=== PATIENT | male | born 1955 | race Caucasian/White ===

== ENCOUNTER 2019-01-23 19:13 | Emergency (ER) | payer SELFPAY ==
--- NOTE | 2019-01-23 20:10 | EDM.PDOC ---
ED HPI GENERAL MEDICAL PROBLEM - General Chief Complaint: Back Pain or Injury Stated Complaint: BACK PAIN Time Seen by Provider: 01/23/19 20:05 - History of Present Illness INITIAL COMMENTS - FREE TEXT/NARRATIVE: HISTORY AND PHYSICAL: History of present illness: Patient is a 63-year-old white male presents 48 hours status post fall from a ladder this was approximately 15 feet height he presents today with concern of low back pain with radiation to his lower extremities denies numbness weakness incontinence or retention our bladder denies any other trauma or concern Review of systems: As per history of present illness and below otherwise all systems reviewed and negative. Past medical history: As per history of present illness and as reviewed below otherwise noncontributory. Surgical history: As per history of present illness and as reviewed below otherwise noncontributory. Social history: No reported history of drug or alcohol abuse. Family history: As per history of present illness and as reviewed below otherwise noncontributory. Physical exam: HEENT: Atraumatic, normocephalic, pupils reactive, negative for conjunctival pallor or scleral icterus, mucous membranes moist, throat clear, neck supple, nontender, trachea midline. Lungs: Clear to auscultation, breath sounds equal bilaterally, chest nontender. Heart: S1S2, regular, negative for clicks, rubs, or JVD. Abdomen: Soft, nondistended, nontender. Negative for masses or hepatosplenomegaly. Negative for costovertebral tenderness. Pelvis: Stable nontender. Genitourinary: Deferred. Rectal: Deferred. Extremities: Atraumatic, negative for cords or calf pain. Neurovascular unremarkable. Neuro: Awake, alert, oriented. Cranial nerves II through XII unremarkable. Cerebellum unremarkable. Motor and sensory unremarkable throughout. Exam nonfocal. Back: Patient has tenderness paravertebral region of the lumbar spine is no vertebral body or point tenderness patient is able stand on his toes back on his heels motor and sensory are normal thoracic spine is nontender to palpation Diagnostics: CT lumbar spine x-ray pelvis Therapeutics: None Impression: #1 observation 48 hours status post fall #2 lumbar strain/contusion with radiculopathy Definitive disposition and diagnosis as appropriate pending reevaluation and review of above. Lower Back Pain Score (Numeric/FACES): 10 - Related Data Allergies Allergy/AdvReac Type Severity Reaction Status Date / Time No Known Allergies Allergy Verified 01/23/19 19:47 Home Meds: Home Meds Lisinopril 10 mg PO DAILY 01/23/19 [History] Past Medical History HEENT History: Reports: None Cardiovascular History: Reports: Hypertension Respiratory History: Reports: None Gastrointestinal History: Reports: None Genitourinary History: Reports: None Musculoskeletal History: Reports: Fracture Neurological History: Reports: None Psychiatric History: Reports: Anxiety, Panic Attack Endocrine/Metabolic History: Reports: None Hematologic History: Reports: None Immunologic History: Reports: None Oncologic (Cancer) History: Reports: None Dermatologic History: Reports: None - Infectious Disease History Infectious Disease History: Reports: None - Past Surgical History Head Surgeries/Procedures: Reports: None Other Musculoskeletal Surgeries/Procedures:: ankle Social & Family History - Family History Family Medical History: Noncontributory - Tobacco Use Smoking Status *Q: Never Smoker Second Hand Smoke Exposure: No - Caffeine Use Caffeine Use: Reports: Coffee - Recreational Drug Use Recreational Drug Use: No ED ROS GENERAL - Review of Systems Review Of Systems: ROS reveals no pertinent complaints other than HPI. ED EXAM, GENERAL - Physical Exam Exam: See Below (See dictation) Course - Vital Signs Last Recorded V/S: Last Vital Signs Temp 36.6 C 01/23/19 19:42 Pulse 72 01/23/19 22:01 Resp 16 01/23/19 22:01 BP 185/118 H 01/23/19 22:01 Pulse Ox 97 01/23/19 22:01 - Orders/Labs/Meds Orders: Active Orders 24 hr Category Date Time Status Pelvis 1V or 2V [CR] Stat Exams 01/23/19 20:08 Taken Meds: Medications Discontinued Medications Generic Name Dose Route Start Last Admin Trade Name Mikey PRN Reason Stop Dose Admin Ketorolac Tromethamine 60 mg 01/23/19 21:48 01/23/19 22:00 Toradol IM 01/23/19 21:49 60 mg ONETIME ONE Administration Departure - Departure Time of Disposition: 22:10 Disposition: Home, Self-Care 01 Condition: Good Clinical Impression: Compression fracture of first lumbar vertebra - Discharge Information Referrals: PCP,None [Primary Care Provider] - Forms: ED Department Discharge Additional Instructions: The following information is given to patients seen in the emergency department who are being discharged to home. This information is to outline your options for follow-up care. We provide all patients seen in our emergency department with a follow-up referral. The need for follow-up, as well as the timing and circumstances, are variable depending upon the specifics of your emergency department visit. If you don't have a primary care physician on staff, we will provide you with a referral. We always advise you to contact your personal physician following an emergency department visit to inform them of the circumstance of the visit and for follow-up with them and/or the need for any referrals to a consulting specialist. The emergency department will also refer you to a specialist when appropriate. This referral assures that you have the opportunity for followup care with a specialist. All of these measure are taken in an effort to provide you with optimal care, which includes your followup. Under all circumstances we always encourage you to contact your private physician who remains a resource for coordinating your care. When calling for followup care, please make the office aware that this follow-up is from your recent emergency room visit. If for any reason you are refused follow-up, please contact the [facility] emergency department at and asked to speak to the emergency department charge nurse. Hydrocodone as prescribed follow-up primary medical doctor return as needed as discussed - My Orders Last 24 Hours: My Active Orders 01/23/19 20:08 Pelvis 1V or 2V [CR] Stat - Assessment/Plan Last 24 Hours: My Active Orders 01/23/19 20:08 Pelvis 1V or 2V [CR] Stat
--- NOTE | 2019-01-23 20:54 | CT ---
INDICATION: Fall. Pain TECHNIQUE: CT lumbar spine without contrast. COMPARISON: None available FINDINGS: The lumbar spine alignment is preserved. There is a moderate anterior compression deformity of the L1 vertebral body without an obvious fracture lucency. Otherwise, no acute lumbar spine fracture is seen. There is a chronic periosteal deformity in the posterior aspect of the right ilium with a corticated calcific density in the adjacent soft tissues, sequela of old trauma. Mild degenerative changes are noted, including a disc bulge at L4-5 and a small disk protrusion at L5-S1. No paravertebral soft tissue mass is seen. There are partially imaged right renal cysts, some containing calcified septations. Left renal parapelvic cysts are noted. Atherosclerotic changes are seen. IMPRESSION: An L1 compression deformity appears chronic. If clinically indicated, MRI evaluation may be of value to evaluate for a recent injury. Degenerative changes. Partially imaged complex right renal cysts. Recommend followup. Dictated by Eb Neal MD @ 01/23/2019 8:53:20 PM Please note that all CT scans at this facility use dose modulation, iterative reconstruction, and/or weight-based dosing when appropriate to reduce radiation dose to as low as reasonably achievable. Dictated by: Eb Neal MD @ 01/23/2019 20:53:29 (Electronically Signed)
[2019-01-23] MEDS ORDERED: Ketorolac 60 MG/2 ML SDV IM ONE (21:48)
[2019-01-23 22:02] VITALS: BP 185/118
--- NOTE | 2019-01-26 10:56 | CR ---
EXAM DATE: 01/23/19 PATIENT'S AGE: 63 Patient: INNA FAULKNER Facility: [facility], [place], [place], operated by [facility] Site Site : [id number] Study: XRay-Pelvis [id number]/17/2019 8:46:59 PM Ordering Physician: Sage Parr MD Final Report: Indication: Fall Technique: Frontal view pelvis Comparison: None Findings: Bones: Alignment is normal. No fractures. There is a 4 mm sclerotic bone lesion in the left femoral neck. Joint spaces: Unremarkable. Soft tissues: Unremarkable. Impression: No acute fracture subluxation. Nonspecific, subcentimeter sclerotic bone lesion in the left femoral neck. Recommend correlation with any prior imaging to evaluate for interval change. Dictated by Stefanie Durand MD @ Jan 23 2019 9:05PM Signed by: Stefanie Durand MD @01/23/2019 9:09:22 PM (Electronic Signature) MTDD
== END 2019-01-23 22:44 | disposition home or self-care (01) ==
LOC: MW.ED 19:13
DX: S32.019A Unspecified fracture of first lumbar vertebra, initial encounter for closed fracture (principal); I10 Essential (primary) hypertension; Z79.899 Other long term (current) drug therapy; W11.XXXA Fall on and from ladder, initial encounter
CPT/HCPCS: 72131; 72170; 96372; 99284; J1885; 99283

== ENCOUNTER 2019-02-28 19:32 | Emergency (ER) | payer SELFPAY ==
[2019-02-28] MEDS ORDERED: LORazepam 0.5 MG Tab PO ONE (20:09)
--- NOTE | 2019-02-28 20:09 | EDM.PDOC ---
ED HPI GENERAL MEDICAL PROBLEM - General Chief Complaint: General Stated Complaint: PANIC ATTACK Time Seen by Provider: 02/28/19 19:43 Source of Information: Reports: Patient History Limitations: Reports: No Limitations - History of Present Illness INITIAL COMMENTS - FREE TEXT/NARRATIVE: HISTORY AND PHYSICAL: History of present illness: Patient is a 63-year-old male presenting today for panic attacks. Patient reports that they began one week ago and he has had them multiple times a day. He states that when he has panic attacks his thoughts race, he feels chest pressure, and is afraid to go to sleep. He is not currently experiencing chest pressure. He does state that he has a history of panic attacks that were treated with PRN Ativan which he ran out of last week as he just moved here to be with his son after his mothers passing. Patient states he had called and made an appointment with [facility] and has an appointment this coming Saturday. Patient denies fever, chills, chest pain, shortness of breath, or cough. Denies headache, neck stiff ness, change in vision, syncope, or near syncope. Denies nausea, vomiting, abdominal pain, diarrhea, constipation, or dysuria. Has not noted any blood in urine or stool. Patient has been eating and drinking appropriately. Review of systems: As per history of present illness and below otherwise all systems reviewed and negative. Past medical history: As per history of present illness and as reviewed below otherwise noncontributory. Surgical history: As per history of present illness and as reviewed below otherwise noncontributory. Social history: See social history for further information Family history: As per history of present illness and as reviewed below otherwise noncontributory. Physical exam: General: Patient is alert, oriented, and in no acute distress. Patient sitting comfortably on exam table but does appear moderately anxious. HEENT: Atraumatic, normocephalic, pupils equal and reactive bilaterally, negative for conjunctival pallor or scleral icterus, mucous membranes moist, TMs normal bilaterally, throat clear, neck supple, nontender, trachea midline. No drooling or trismus noted. No meningeal signs. No hot potato voice noted. Lungs: Clear to auscultation, breath sounds equal bilaterally, chest nontender. Heart: S1S2, regular rate and rhythm without overt murmur Abdomen: Soft, nondistended, nontender. Negative for masses or hepatosplenomegaly. Negative for costovertebral tenderness. Pelvis: Stable nontender. Genitourinary: Deferred. Rectal: Deferred. Skin: Intact, warm, dry. No lesions or rashes noted. Extremities: Atraumatic, negative for cords or calf pain. Neurovascular unremarkable. Neuro: Awake, alert, oriented. Cranial nerves II through XII unremarkable. Cerebellum unremarkable. Motor and sensory unremarkable throughout. Exam nonfocal. Notes: Discussed the importance of following up with PCP as scheduled. Voices understanding and is agreeable to plan of care. Denies any further questions or concerns at this time. Diagnostics: EKG (patient declines all other diagnostics due to concern about cost) Therapeutics: Ativan PO Prescription: None Impression: Anxiety History of Anxiety Plan: 1. Follow up with your primary care provider as you have scheduled. Return to the ED as needed and as discussed. Definitive disposition and diagnosis as appropriate pending reevaluation and review of above. denies pain Pain Score (Numeric/FACES): 0 - Related Data Allergies Allergy/AdvReac Type Severity Reaction Status Date / Time No Known Allergies Allergy Verified 02/28/19 19:42 Home Meds: Home Meds Lisinopril 10 mg PO DAILY 01/23/19 [History] LORazepam 1 mg PO DAILY 02/28/19 [History] Past Medical History HEENT History: Reports: None Cardiovascular History: Reports: Hypertension Respiratory History: Reports: None Gastrointestinal History: Reports: None Genitourinary History: Reports: None Musculoskeletal History: Reports: Fracture Neurological History: Reports: None Psychiatric History: Reports: Anxiety, Panic Attack Endocrine/Metabolic History: Reports: None Hematologic History: Reports: None Immunologic History: Reports: None Oncologic (Cancer) History: Reports: None Dermatologic History: Reports: None - Infectious Disease History Infectious Disease History: Reports: None - Past Surgical History Head Surgeries/Procedures: Reports: None Other Musculoskeletal Surgeries/Procedures:: ankle Social & Family History - Family History Family Medical History: Noncontributory - Tobacco Use Smoking Status *Q: Never Smoker - Caffeine Use Caffeine Use: Reports: Coffee - Recreational Drug Use Recreational Drug Use: No ED ROS GENERAL - Review of Systems Review Of Systems: ROS reveals no pertinent complaints other than HPI. ED EXAM, GENERAL - Physical Exam Exam: See Below (See dictation) Course - Vital Signs Last Recorded V/S: Last Vital Signs Temp 36.7 C 06/22/19 19:42 Pulse 66 02/28/19 19:42 Resp 18 02/28/19 19:42 BP 149/80 H 02/28/19 19:42 Pulse Ox 96 02/28/19 19:42 - Orders/Labs/Meds Orders: Active Orders 24 hr Category Date Time Status EKG Documentation Completion [RC] STAT Care 02/28/19 20:09 Active Meds: Medications Discontinued Medications Generic Name Dose Route Start Last Admin Trade Name Mikey PRN Reason Stop Dose Admin Lorazepam 0.5 mg 02/28/19 20:09 Ativan PO 02/28/19 20:10 ONETIME ONE Departure - Departure Time of Disposition: 20:38 Disposition: Home, Self-Care 01 Clinical Impression: Anxiety, History of panic attacks - Discharge Information Referrals: PCP,None [Primary Care Provider] - Forms: ED Department Discharge Additional Instructions: The following information is given to patients seen in the emergency department who are being discharged to home. This information is to outline your options for follow-up care. We provide all patients seen in our emergency department with a follow-up referral. The need for follow-up, as well as the timing and circumstances, are variable depending upon the specifics of your emergency department visit. If you don't have a primary care physician on staff, we will provide you with a referral. We always advise you to contact your personal physician following an emergency department visit to inform them of the circumstance of the visit and for follow-up with them and/or the need for any referrals to a consulting specialist. The emergency department will also refer you to a specialist when appropriate. This referral assures that you have the opportunity for follow-up care with a specialist. All of these measure are taken in an effort to provide you with optimal care, which includes your follow-up. Under all circumstances we always encourage you to contact your private physician who remains a resource for coordinating your care. When calling for follow-up care, please make the office aware that this follow-up is from your recent emergency room visit. If for any reason you are refused follow-up, please contact the [facility] Emergency Department at and asked to speak to the emergency department charge nurse. [facility] [address] [place] [id number] [facility] [address] [place] [id number] 1. Follow up with your primary care provider as you have scheduled. Return to the ED as needed and as discussed. - My Orders Last 24 Hours: My Active Orders 02/28/19 20:09 EKG Documentation Completion [RC] STAT - Assessment/Plan Last 24 Hours: My Active Orders 02/28/19 20:09 EKG Documentation Completion [RC] STAT
[2019-02-28 22:16] VITALS: BP 133/95
== END 2019-02-28 20:46 | disposition home or self-care (01) ==
LOC: MW.ED 19:32
DX: F41.9 Anxiety disorder, unspecified (principal); I10 Essential (primary) hypertension; Z79.899 Other long term (current) drug therapy
CPT/HCPCS: 93005; 99283; A9270

== ENCOUNTER 2019-04-11 22:04 | Emergency (ER) | payer SELFPAY ==
--- NOTE | 2019-04-11 22:17 | EDM.PDOC ---
ED HPI GENERAL MEDICAL PROBLEM - General Chief Complaint: General Stated Complaint: PANIC ATTACKS Time Seen by Provider: 04/11/19 22:11 - History of Present Illness INITIAL COMMENTS - FREE TEXT/NARRATIVE: HISTORY AND PHYSICAL: History of present illness: Patient is a 63-year-old white male history of anxiety and panic attacks presents with a concern of panic attack he has an appointment approximately one week and his private medical doctor this has improved since arrival here. He denies suicidal or homicidal ideation or any other concern Review of systems: As per history of present illness and below otherwise all systems reviewed and negative. Past medical history: As per history of present illness and as reviewed below otherwise noncontributory. Surgical history: As per history of present illness and as reviewed below otherwise noncontributory. Social history: No reported history of drug or alcohol abuse. Family history: As per history of present illness and as reviewed below otherwise noncontributory. Physical exam: HEENT: Atraumatic, normocephalic, pupils reactive, negative for conjunctival pallor or scleral icterus, mucous membranes moist, throat clear, neck supple, nontender, trachea midline. Lungs: Clear to auscultation, breath sounds equal bilaterally, chest nontender. Heart: S1S2, regular, negative for clicks, rubs, or JVD. Abdomen: Soft, nondistended, nontender. Negative for masses or hepatosplenomegaly. Negative for costovertebral tenderness. Pelvis: Stable nontender. Genitourinary: Deferred. Rectal: Deferred. Extremities: Atraumatic, negative for cords or calf pain. Neurovascular unremarkable. Neuro: Awake, alert, oriented. Cranial nerves II through XII unremarkable. Cerebellum unremarkable. Motor and sensory unremarkable throughout. Exam nonfocal. Diagnostics: None Therapeutics: None Impression: #1 history of anxiety with panic attacks #2 medical screening Definitive disposition and diagnosis as appropriate pending reevaluation and review of above. - Related Data Allergies Allergy/AdvReac Type Severity Reaction Status Date / Time No Known Allergies Allergy Verified 02/28/19 19:42 Home Meds: Home Meds Lisinopril 10 mg PO DAILY 01/23/19 [History] LORazepam 1 mg PO DAILY 02/28/19 [History] Past Medical History HEENT History: Reports: None Cardiovascular History: Reports: Hypertension Respiratory History: Reports: None Gastrointestinal History: Reports: None Genitourinary History: Reports: None Musculoskeletal History: Reports: Fracture Neurological History: Reports: None Psychiatric History: Reports: Anxiety, Panic Attack Endocrine/Metabolic History: Reports: None Hematologic History: Reports: None Immunologic History: Reports: None Oncologic (Cancer) History: Reports: None Dermatologic History: Reports: None - Infectious Disease History Infectious Disease History: Reports: None - Past Surgical History Head Surgeries/Procedures: Reports: None Other Musculoskeletal Surgeries/Procedures:: ankle Social & Family History - Family History Family Medical History: Noncontributory - Caffeine Use Caffeine Use: Reports: Coffee ED ROS GENERAL - Review of Systems Review Of Systems: ROS reveals no pertinent complaints other than HPI. ED EXAM, GENERAL - Physical Exam Exam: See Below (See dictation) Departure - Departure Time of Disposition: 22:16 Disposition: Home, Self-Care 01 Condition: Good Clinical Impression: History of anxiety disorder, Encounter for medical screening examination - Discharge Information Referrals: PCP,None [Primary Care Provider] - Additional Instructions: The following information is given to patients seen in the emergency department who are being discharged to home. This information is to outline your options for follow-up care. We provide all patients seen in our emergency department with a follow-up referral. The need for follow-up, as well as the timing and circumstances, are variable depending upon the specifics of your emergency department visit. If you don't have a primary care physician on staff, we will provide you with a referral. We always advise you to contact your personal physician following an emergency department visit to inform them of the circumstance of the visit and for follow-up with them and/or the need for any referrals to a consulting specialist. The emergency department will also refer you to a specialist when appropriate. This referral assures that you have the opportunity for followup care with a specialist. All of these measure are taken in an effort to provide you with optimal care, which includes your followup. Under all circumstances we always encourage you to contact your private physician who remains a resource for coordinating your care. When calling for followup care, please make the office aware that this follow-up is from your recent emergency room visit. If for any reason you are refused follow-up, please contact the [facility] emergency department at and asked to speak to the emergency department charge nurse. Keep scheduled appointment as discussed return as needed as discussed
[2019-04-11 22:49] VITALS: BP 120/65; PULSE 64
== END 2019-04-11 22:26 | disposition home or self-care (01) ==
LOC: MW.ED 22:04
DX: Z13.89 Encounter for screening for other disorder (principal); F41.0 Panic disorder [episodic paroxysmal anxiety]; I10 Essential (primary) hypertension; Z79.899 Other long term (current) drug therapy
CPT/HCPCS: 99282; 99283

== ENCOUNTER 2019-04-14 10:10 | Emergency (ER) | payer SELFPAY ==
--- NOTE | 2019-04-14 10:52 | EDM.PDOC ---
ED HPI GENERAL MEDICAL PROBLEM - General Chief Complaint: General Stated Complaint: PANIC ATTACKS Time Seen by Provider: 04/14/19 10:32 - History of Present Illness INITIAL COMMENTS - FREE TEXT/NARRATIVE: HISTORY AND PHYSICAL: History of present illness: Presents reporting anxiety and panic attacks. The patient states he has a long history of anxiety and panic but over the last 2 weeks it is worsened as his mom . He states that if he is not constantly Busy by working or some other distraction he panics. His panic attacks are characterized by shortness of breath, jitters, overactivity, trouble sleeping, racing thoughts, crying, and constant worry. He states that he was previously on Ativan 0.5 mg 3 times a day which did control his symptoms however he ran out. He had been "hoarding them" and taking them only when absolutely necessary but now he ran out completely. He has an appointment in primary care on at [facility] at 4:30. He intends on keeping that appointment but needs something to get him through in the interim. Review of systems: As per history of present illness and below otherwise all systems reviewed and negative. Past medical history: As per history of present illness and as reviewed below otherwise noncontributory. Surgical history: As per history of present illness and as reviewed below otherwise noncontributory. Social history: No reported history of drug or alcohol abuse. Family history: As per history of present illness and as reviewed below otherwise noncontributory. Physical exam: HEENT: Atraumatic, normocephalic, pupils reactive, negative for conjunctival pallor or scleral icterus, mucous membranes moist, throat clear, neck supple, nontender, trachea midline. Lungs: Clear to auscultation, breath sounds equal bilaterally, chest nontender. Heart: S1S2, regular, negative for clicks, rubs, or JVD. Abdomen: Soft, nondistended, nontender. Negative for masses or hepatosplenomegaly. Negative for costovertebral tenderness. Pelvis: Stable nontender. Genitourinary: Deferred. Rectal: Deferred. Extremities: Atraumatic, negative for cords or calf pain. Neurovascular unremarkable. Neuro: Awake, alert, oriented. Cranial nerves II through XII unremarkable. Cerebellum unremarkable. Motor and sensory unremarkable throughout. Exam nonfocal. Diagnostics: [] Therapeutics: [] Impression: [] Plan: [] Definitive disposition and diagnosis as appropriate pending reevaluation and review of above. - Related Data Allergies Allergy/AdvReac Type Severity Reaction Status Date / Time No Known Allergies Allergy Verified 04/14/19 10:26 Home Meds: Home Meds Lisinopril 10 mg PO DAILY 01/23/19 [History] LORazepam 1 mg PO DAILY 02/28/19 [History] LORazepam 0.5 mg PO Q8H #10 tab 04/14/19 [Rx] Past Medical History HEENT History: Reports: None Other HEENT History: wears glasses Cardiovascular History: Reports: Hypertension Respiratory History: Reports: None Gastrointestinal History: Reports: None Genitourinary History: Reports: None Musculoskeletal History: Reports: Fracture Neurological History: Reports: None Psychiatric History: Reports: Anxiety, Panic Attack Endocrine/Metabolic History: Reports: None Hematologic History: Reports: None Immunologic History: Reports: None Oncologic (Cancer) History: Reports: None Dermatologic History: Reports: None - Infectious Disease History Infectious Disease History: Reports: None - Past Surgical History Head Surgeries/Procedures: Reports: None Other Musculoskeletal Surgeries/Procedures:: ankle Social & Family History - Family History Family Medical History: Noncontributory - Tobacco Use Smoking Status *Q: Never Smoker - Caffeine Use Caffeine Use: Reports: None - Recreational Drug Use Recreational Drug Use: No ED ROS GENERAL - Review of Systems Review Of Systems: See Below Psychiatric: Reports: Other (Denies self-harm or homicidal ideations). Denies: Homicidal Ideation, Suicidal Ideation ED EXAM, GENERAL - Physical Exam Exam: See Below Exam Limited By: No Limitations General Appearance: Alert, Moderate Distress (Jittery and having difficulty talking due to anxiety) Ears: Normal External Exam Nose: Normal Inspection Throat/Mouth: Normal Inspection Head: Atraumatic, Normocephalic Neck: Normal Inspection Respiratory/Chest: No Respiratory Distress Cardiovascular: Normal Peripheral Pulses Psychiatric: Anxious Skin Exam: Warm, Dry, Normal Color Course - Vital Signs Last Recorded V/S: Last Vital Signs Temp 36.9 C 04/14/19 10:26 Pulse 60 04/14/19 10:26 Resp 18 04/14/19 10:26 BP 166/102 H 04/14/19 10:26 Pulse Ox 93 L 04/14/19 10:26 Departure - Departure Time of Disposition: 10:59 Disposition: Home, Self-Care 01 Condition: Good Clinical Impression: Panic - Discharge Information *PRESCRIPTION DRUG MONITORING PROGRAM REVIEWED*: Yes *COPY OF PRESCRIPTION DRUG MONITORING REPORT IN PATIENT FELICIANO: Yes Referrals: PCP,None [Primary Care Provider] - Additional Instructions: The following information is given to patients seen in the emergency department who are being discharged to home. This information is to outline your options for follow-up care. We provide all patients seen in our emergency department with a follow-up referral. The need for follow-up, as well as the timing and circumstances, are variable depending upon the specifics of your emergency department visit. If you don't have a primary care physician on staff, we will provide you with a referral. We always advise you to contact your personal physician following an emergency department visit to inform them of the circumstance of the visit and for follow-up with them and/or the need for any referrals to a consulting specialist. The emergency department will also refer you to a specialist when appropriate. This referral assures that you have the opportunity for follow-up care with a specialist. All of these measure are taken in an effort to provide you with optimal care, which includes your follow-up. Under all circumstances we always encourage you to contact your private physician who remains a resource for coordinating your care. When calling for follow-up care, please make the office aware that this follow-up is from your recent emergency room visit. If for any reason you are refused follow-up, please contact the [facility] Emergency Department at and asked to speak to the emergency department charge nurse. 1. Take your Ativan 3 times a day until your appointment on . No driving or operating machinery 2. Follow-up in primary care as previously scheduled on at [facility].
[2019-04-14 11:24] VITALS: BP 139/85; PULSE 51
== END 2019-04-14 11:24 | disposition home or self-care (01) ==
LOC: MW.ED 10:10
DX: F41.0 Panic disorder [episodic paroxysmal anxiety] (principal); I10 Essential (primary) hypertension; Z79.01 Long term (current) use of anticoagulants; Z79.899 Other long term (current) drug therapy
CPT/HCPCS: 99282

== ENCOUNTER 2019-05-15 22:18 | Emergency (ER) | payer SELFPAY ==
[2019-05-15] MEDS ORDERED: Sodium Chloride 0.9% 2.5 ML Syringe FLUSH PRN (22:21)
[2019-05-15] MEDS ORDERED: Sodium Chloride 0.9% 10 ML Syringe FLUSH PRN (22:21)
[2019-05-15 22:41] VITALS: BP 174/106; PULSE 89
== END 2019-05-15 22:25 | disposition left against medical advice (07) ==
LOC: MW.ED 22:18
DX: Z53.21 Procedure and treatment not carried out due to patient leaving prior to being seen by health care provider (principal)
CPT/HCPCS: 99284

== ENCOUNTER 2020-05-02 08:48 | Emergency (ER) | payer SELFPAY ==
--- NOTE | 2020-05-02 09:06 | EDM.PDOC ---
ED HPI GENERAL MEDICAL PROBLEM - General Chief Complaint: Lower Extremity Injury/Pain Stated Complaint: INJURED BOTH FEET Time Seen by Provider: 05/02/20 08:53 - History of Present Illness INITIAL COMMENTS - FREE TEXT/NARRATIVE: History of present illness: Patient presents with bilateral ankle pain and lumbar spine pain after a fall from a roof over 2 days ago. Patient states he was working on a roof and then slid down the roof and then fell off landing on his feet he did not hit his head he did not get knocked out he has been having ankle pain in both feet and he has been using Ran wraps to try to help with pain initially his right was worse than his left but now the left is swollen and he is unable to bear weight on it. He has been having some difficulty with lumbar pain. He has not taken anything for the pain. Review of systems: As per history of present illness and below otherwise all systems reviewed and negative. Past medical history: As per history of present illness and as reviewed below otherwise no ncontributory. Surgical history: As per history of present illness and as reviewed below otherwise noncontributory. Social history: No reported history of drug or alcohol abuse. Family history: As per history of present illness and as reviewed below otherwise noncontributory. Physical exam: HEENT: Atraumatic, normocephalic, pupils reactive, negative for conjunctival pallor or scleral icterus, mucous membranes moist, throat clear, neck supple, nontender. There is no midline cervical spine tenderness full active range of motion is present without pain, trachea midline. Lungs: Clear to auscultation, breath sounds equal bilaterally, chest nontender. Heart: S1S2, regular, negative for clicks, rubs, or JVD. Abdomen: Soft, nondistended, nontender. Negative for masses or hepatosplenomegaly. Negative for costovertebral tenderness. Pelvis: Stable nontender. Genitourinary: Deferred. Rectal: Deferred. Extremities: Atraumatic, negative for cords or calf pain. Neurovascular unremarkable. Both ankles are swollen with good distal pulse motor and sensation. There is pain over both navicular bones and lateral malleoli. The left is more swollen than the right. Neuro: Awake, alert, oriented. Cranial nerves II through XII unremarkable. Cerebellum unremarkable. Motor and sensory unremarkable throughout. Exam nonfocal. No saddle anesthesia great toe strength 5 out of 5 bilaterally Back: There is midline tenderness at L3-4-5 with paraspinal tenderness in the musculature at the same level. No step-offs or crepitance is noted Diagnostics: [] Therapeutics: [] Impression: [] Plan: Patient will receive some Motrin in the ED bilateral ankles and lumbar spine films will be obtained [] Definitive disposition and diagnosis as appropriate pending reevaluation and review of above. left ankle Pain Score (Numeric/FACES): 10 - Related Data Allergies Allergy/AdvReac Type Severity Reaction Status Date / Time No Known Allergies Allergy Verified 05/02/20 09:03 Home Meds: Home Meds Lisinopril 10 mg PO DAILY 01/23/19 [History] LORazepam 1 mg PO DAILY 02/28/19 [History] Naproxen [Naprosyn] 500 mg PO Q12HR #20 tab 05/02/20 [Rx] Past Medical History HEENT History: Reports: None Other HEENT History: wears glasses Cardiovascular History: Reports: Hypertension Respiratory History: Reports: None Gastrointestinal History: Reports: None Genitourinary History: Reports: None Musculoskeletal History: Reports: Fracture Neurological History: Reports: None Psychiatric History: Reports: Anxiety, Panic Attack Endocrine/Metabolic History: Reports: None Hematologic History: Reports: None Immunologic History: Reports: None Oncologic (Cancer) History: Reports: None Dermatologic History: Reports: None - Infectious Disease History Infectious Disease History: Reports: None - Past Surgical History Head Surgeries/Procedures: Reports: None Other Musculoskeletal Surgeries/Procedures:: ankle Social & Family History - Family History Family Medical History: Noncontributory - Caffeine Use Caffeine Use: Reports: None Review of Systems - Review of Systems Review Of Systems: See Below ED EXAM, GENERAL - Physical Exam Exam: See Below Course - Vital Signs Text/Narrative:: 3 view lumbar spine read interpreted by me there is an L1 compression fracture with moderate compression abnormalities read and interpreted by me 6 views of bilateral ankles read and interpreted by me there are chronic changes including orthopedic hardware but there are no acute fractures read and interpreted by me I attempted to inform the patient about his results however he has absconded from the ED. I walked around the waiting room and looked out in the parking lot he was nowhere to be found I made an attempt to call the phone number which she left with registration and it is the wrong number. Last Recorded V/S: Last Vital Signs Temp 36.7 C 05/02/20 09:20 Pulse 73 05/02/20 09:20 Resp 18 05/02/20 09:20 BP 160/80 H 05/02/20 09:20 Pulse Ox 95 05/02/20 09:20 - Orders/Labs/Meds Meds: Medications Discontinued Medications Generic Name Dose Route Start Last Admin Trade Name Mikey PRN Reason Stop Dose Admin Ibuprofen 800 mg 05/02/20 09:22 05/02/20 09:32 Motrin PO 05/02/20 09:23 800 mg ONETIME ONE Administration Departure - Departure Time of Disposition: 11:00 Disposition: Eloped 07 Condition: Good Clinical Impression: Ankle sprain - Discharge Information Prescriptions: Naproxen [Naprosyn] 500 mg PO Q12HR #20 tab Instructions: Ankle Sprain, [id number], Spinal Compression Fracture Referrals: PCP,None [Primary Care Provider] - Forms: ED Department Discharge Additional Instructions: The following information is given to patients seen in the emergency department who are being discharged to home. This information is to outline your options for follow-up care. We provide all patients seen in our emergency department with a follow-up referral. The need for follow-up, as well as the timing and circumstances, are variable depending upon the specifics of your emergency department visit. If you don't have a primary care physician on staff, we will provide you with a referral. We always advise you to contact your personal physician following an emergency department visit to inform them of the circumstance of the visit and for follow-up with them and/or the need for any referrals to a consulting specialist. The emergency department will also refer you to a specialist when appropriate. This referral assures that you have the opportunity for follow-up care with a specialist. All of these measure are taken in an effort to provide you with optimal care, which includes your follow-up. Under all circumstances we always encourage you to contact your private physician who remains a resource for coordinating your care. When calling for follow-up care, please make the office aware that this follow-up is from your recent emergency room visit. If for any reason you are refused follow-up, please contact the Emergency Department at and asked to speak to the emergency department charge nurse. [facility] [address] [place] [address], [address] [place] [address] Sepsis Event Note (ED) - Focused Exam Vital Signs: Vital Signs Temp Pulse Resp BP Pulse Ox 05/02/20 09:20 36.7 C 73 18 160/80 H 95
[2020-05-02 09:22] VITALS: BP 160/80; PULSE 73
[2020-05-02] MEDS ORDERED: Ibuprofen 800 MG Tab PO ONE (09:22)
--- NOTE | 2020-05-02 10:34 | CR ---
Lumbar spine: AP, lateral and coned-down lateral views centered to the lumbosacral junction were obtained. Comparison: No previous lumbar spine imaging is available. Moderate anterior wedge deformity is noted of L1. This could be acute, MRI would be needed to confirm if clinically indicated. Other vertebral body heights are maintained. Disc spaces are fairly well preserved. Pedicles are intact. Scattered endplate osteophytes are seen. Impression: 1. Moderate anterior wedge deformity of L1 as described above. 2. Minimal degenerative change. Diagnostic code #3 This report was dictated in MDT
--- NOTE | 2020-05-02 11:02 | CR ---
Right ankle: 3 views of the right ankle were obtained. Comparison: No previous ankle study. 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 Ankle mortise is symmetric. Mild soft tissue swelling is noted laterally. No acute fracture or other abnormality is appreciated. Impression: 1. 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 2. No acute bony abnormality is identified. Left ankle: 3 views left ankle were obtained. Comparison: No previous ankle study. 3 screws are noted within the distal tibia. Ankle mortise is symmetric. Mild soft tissue swelling is seen. No acute fracture, dislocation or other bony abnormality is identified. Impression: 1. Orthopedic screws. 2. Mild soft tissue swelling. 3. No acute bony abnormality is seen on left ankle exam. Diagnostic code #2 This report was dictated in MDT
== END 2020-05-02 11:30 | disposition left against medical advice (07) ==
LOC: MW.ED 08:48
DX: S93.402A Sprain of unspecified ligament of left ankle, initial encounter (principal); S93.401A Sprain of unspecified ligament of right ankle, initial encounter; I10 Essential (primary) hypertension; F41.9 Anxiety disorder, unspecified; Z79.899 Other long term (current) drug therapy; W13.2XXA Fall from, out of or through roof, initial encounter
CPT/HCPCS: 72100; 73610; 99283; A9270